=== PATIENT | male | born 1955 | race African-American/Black ===

== ENCOUNTER 2022-11-20 06:09 | Day surgery (SDC) | payer MEDICARE ==
[2022-11-17 11:31] VITALS: BMI 22.9
[2022-11-20] MEDS ORDERED: PROPOFOL 40 ML ONE (08:14)
[2022-11-20] MEDS ORDERED: fentaNYL 50 mcg/mL 1 mL Vial ONE (08:31)
[2022-11-20] MEDS ORDERED: PROPOFOL 20 ML ONE (08:54)
[2022-11-20] MEDS ORDERED: Lidocaine 1% PF 5 ML VIAL ONE (08:56)
== END 2022-11-20 09:50 | disposition home or self-care (01) ==
LOC: CSHSDC 06:09
PROVIDERS: ATTEND Internal Medicine Gastroenterology
PROC: 0DBN8ZZ Excision of Sigmoid Colon, Via Natural or Artificial Opening Endoscopic (ICD-10-PCS; principal; 2022-11-20)
DX: Z12.11 Encounter for screening for malignant neoplasm of colon (principal); D12.5 Benign neoplasm of sigmoid colon; K31.89 Other diseases of stomach and duodenum; I10 Essential (primary) hypertension; E78.5 Hyperlipidemia, unspecified; E11.9 Type 2 diabetes mellitus without complications; G47.00 Insomnia, unspecified; F17.210 Nicotine dependence, cigarettes, uncomplicated; Z86.73 Personal history of transient ischemic attack (TIA), and cerebral infarction without residual deficits; Z79.899 Other long term (current) drug therapy; Z90.49 Acquired absence of other specified parts of digestive tract; Z88.8 Allergy status to other drugs, medicaments and biological substances
CPT/HCPCS: 45385; J3010; 88305; J2704